=== PATIENT | female | born 1995 | race Two or more races ===

== ENCOUNTER 2019-08-10 15:01 | Emergency (ER) | payer SELFPAY ==
[~2019-08-10] VITALS: Ht 170.2 cm; Wt 75.0 kg
[2019-08-10] MEDS ORDERED: SODIUM CHLORIDE 0.9% 1,000 ML IV ONE (15:29)
[2019-08-10] MEDS ORDERED: KETOROLAC 30MG/ML VIAL IV STA (15:29)
[2019-08-10 16:24] LABS: BASOPHILS % 0.3 % (0.0-2.0); EOSINOPHILS % 0.7 % (0.0-5.0); HEMATOCRIT. 42.7 % (36.0-48.0); HEMOGLOBIN. 14.6 g/dL (12.0-16.0); LYMPHOCYTES % 31.2 % (20.0-50.0); MEAN CORPUSCULAR HEMOGLOBIN 30.5 pg (28.0-32.0); MEAN CORPUSCULAR VOLUME 88.9 fL (81.0-99.0); MEAN PLATELET VOLUME 8.4 fl (7.4-10.4); MONOCYTES % 7.6 % (2.0-8.0); NEUTROPHILS % 60.2 % (40.0-76.0); PLATELET 210 x1000/uL (130-400); RED CELL DISTRIBUTION WIDTH 13.5 % (11.6-14.6)
[2019-08-10 16:27] LABS: CHLORIDE 107 mEq/L (98-107)
[2019-08-10] MEDS ORDERED: MAGNESIUM CITRATE 300ML SOLUTION PO SCH (16:45)
[2019-08-10 16:56] LABS: HCG SCREEN NEGATIVE
[2019-08-10 18:20] VITALS: BP 107/63
== END 2019-08-10 19:07 | disposition home or self-care (01) ==
LOC: ER 15:01
DX: K59.00 Constipation, unspecified (principal)
CPT/HCPCS: 36415; 74021; 80053; 81025; 83690; 84703; 85025; 96361; 96374; 99285; J1885; J7030